=== PATIENT | female | born 1990 | race Caucasian/White ===

== ENCOUNTER 2018-01-07 09:15 | Emergency (ER) | payer MEDICAID ==
--- NOTE | 2018-01-07 09:30 | EDM.PDOC ---
ED HPI GENERAL MEDICAL PROBLEM - General Stated Complaint: EYES SWOLLEN Time Seen by Provider: 01/07/18 09:25 - History of Present Illness INITIAL COMMENTS - FREE TEXT/NARRATIVE: HISTORY AND PHYSICAL: History of present illness: Patient is a 27-year-old white female presents with a concern of bilateral crustiness and injection of her conjunctiva right greater than left with some slight lid edema on the right she also had a sore throat she denies fever chills nausea vomiting or other complaints Review of systems: As per history of present illness and below otherwise all systems reviewed and negative. Past medical history: As per history of present illness and as reviewed below otherwise noncontributory. Surgical history: As per history of present illness and as reviewed below otherwise noncontributory. Social history: No reported history of drug or alcohol abuse. Family history: As per history of present illness and as reviewed below otherwise noncontributory. Physical exam: HEENT: Atraumatic, normocephalic, pupils reactive, patient has bilateral injected conjunctiva there is little bit of discharge in her left eye and she is noted to have a small abrasion to her inferior conjunctiva on the right. Anterior chambers clear there is no foreign body or corneal abrasion noted, mucous membranes moist, throat clear, neck supple, nontender, trachea midline. Lungs: Clear to auscultation, breath sounds equal bilaterally, chest nontender. Heart: S1S2, regular, negative for clicks, rubs, or JVD. Abdomen: Soft, nondistended, nontender. Negative for masses or hepatosplenomegaly. Negative for costovertebral tenderness. Pelvis: Stable nontender. Genitourinary: Deferred. Rectal: Deferred. Extremities: Atraumatic, negative for cords or calf pain. Neurovascular unremarkable. Neuro: Awake, alert, oriented. Cranial nerves II through XII unremarkable. Cerebellum unremarkable. Motor and sensory unremarkable throughout. Exam nonfocal. Diagnostics: Rapid strep Therapeutics: Ocular irrigation erythromycin ophthalmic ointment instilled in both eyes Impression: #1 bilateral conjunctivitis #2 pharyngitis Definitive disposition and diagnosis as appropriate pending reevaluation and review of above. ED ROS GENERAL - Review of Systems Review Of Systems: ROS reveals no pertinent complaints other than HPI. ED EXAM, GENERAL - Physical Exam Exam: See Below (See dictation) Course - Orders/Labs/Meds Orders: Active Orders 24 hr Category Date Time Status STREP SCRN A RAPID W CULT CONF [RM] Stat Lab 01/07/18 09:24 Ordered Departure - Departure Time of Disposition: :29 Disposition: Home, Self-Care 01 Condition: Good Clinical Impression: Conjunctivitis - Discharge Information Referrals: PCP,None [Primary Care Provider] - Additional Instructions: The following information is given to patients seen in the emergency department who are being discharged to home. This information is to outline your options for follow-up care. We provide all patients seen in our emergency department with a follow-up referral. The need for follow-up, as well as the timing and circumstances, are variable depending upon the specifics of your emergency department visit. If you don't have a primary care physician on staff, we will provide you with a referral. We always advise you to contact your personal physician following an emergency department visit to inform them of the circumstance of the visit and for follow-up with them and/or the need for any referrals to a consulting specialist. The emergency department will also refer you to a specialist when appropriate. This referral assures that you have the opportunity for followup care with a specialist. All of these measure are taken in an effort to provide you with optimal care, which includes your followup. Under all circumstances we always encourage you to contact your private physician who remains a resource for coordinating your care. When calling for followup care, please make the office aware that this follow-up is from your recent emergency room visit. If for any reason you are refused follow-up, please contact the [facility] emergency department at and asked to speak to the emergency department charge nurse. Tobramycin as prescribed follow-up primary medical doctor/ophthalmology as needed as discussed return as needed as discussed - My Orders Last 24 Hours: My Active Orders 01/07/18 09:24 STREP SCRN A RAPID W CULT CONF [RM] Stat - Assessment/Plan Last 24 Hours: My Active Orders 01/07/18 09:24 STREP SCRN A RAPID W CULT CONF [RM] Stat
[2018-01-07] MEDS ORDERED: Erythromycin Base 0.5% Ophth Oint 1 GM Tube EYEBOTH ONE (10:04)
== END 2018-01-07 10:38 | disposition home or self-care (01) ==
LOC: MW.ED 09:15
DX: H10.9 Unspecified conjunctivitis (principal); J02.9 Acute pharyngitis, unspecified
CPT/HCPCS: 87081; 87880; 99283; A9270

== ENCOUNTER 2019-09-30 09:45 | Day surgery (SDC) | payer MEDICAID ==
[~2019-09-30 09:45] MED LIST: Lactated Ringers 1,000 ML IV SCH; Sodium Chloride 0.9% 10 ML SDV IV PRN; Sodium Chloride 0.9% 10 ML Syringe FLUSH PRN; Sodium Chloride 0.9% 2.5 ML Syringe FLUSH PRN
[2019-09-30] MEDS ORDERED: Midazolam 1 MG/ML 2 ML SDV ONE ×2 (10:32→13:01)
[2019-09-30] MEDS ORDERED: fentaNYL 100 MCG/2 ML SDV ONE ×2 (10:35→16:57)
[2019-09-30] MEDS ORDERED: Propofol 200 MG/20 ML SDV ONE (10:37)
[2019-09-30] MEDS ORDERED: Rocuronium 100 MG/10 ML Syringe ONE (10:38)
[2019-09-30] MEDS ORDERED: ePHEDrine 50 MG/ML SDV ONE (10:39)
[2019-09-30] MEDS ORDERED: Sodium Chloride 0.9% 40 ML ONE (10:39)
--- NOTE | 2019-09-30 10:43 | PCM.PREANE ---
Preanesthetic Assessment - Anesthesia/Transfusion/Family Hx Anesthesia History: Prior Anesthesia Without Reaction Family History of Anesthesia Reaction: No Transfusion History: No Prior Transfusion(s) Intubation History: Unknown - Review of Systems General: No Symptoms Pulmonary: No Symptoms Cardiovascular: No Symptoms Gastrointestinal: No Symptoms Neurological: No Symptoms Other: Reports: None - Physical Assessment NPO Status Date: 09/30/19 NPO Status Time: 01:30 Vital Signs: Last Vital Signs Temp 35.9 C 09/30/19 09:55 Pulse 69 09/30/19 09:55 Resp 18 09/30/19 09:55 BP 130/83 09/30/19 09:55 Pulse Ox 95 09/30/19 09:55 Height: 5 ft 5 in Weight: 100.698 kg ASA Class: 2 Mental Status: Alert & Oriented x3 Airway Class: Mallampati = 2 Dentition: Reports: Normal Dentition Thyro-Mental Finger Breadths: 3 Mouth Opening Finger Breadths: 2 (jaw "pops out when he try to open wide) ROM/Head Extension: Full Lungs: Clear to Auscultation, Normal Respiratory Effort Cardiovascular: Regular Rate, Regular Rhythm - Lab Values: Laboratory Last Values WBC 9.20 K/uL (4.0-11.0) 09/30/19 10:11 RBC 4.71 M/uL (4.30-5.90) 09/30/19 10:11 Hgb 14.0 g/dL (12.0-16.0) 09/30/19 10:11 Hct 41.7 % (36.0-46.0) 09/30/19 10:11 MCV 88.5 fL (80.0-98.0) 09/30/19 10:11 MCH 29.7 pg (27.0-32.0) 09/30/19 10:11 MCHC 33.6 g/dL (31.0-37.0) 09/30/19 10:11 RDW Std Deviation 44.6 fl (28.0-62.0) 09/30/19 10:11 RDW Coeff of Kelin 14 % (11.0-15.0) 09/30/19 10:11 Plt Count 291 K/uL (150-400) 09/30/19 10:11 MPV 10.90 fL (7.40-12.00) 09/30/19 10:11 Nucleated RBC % 0.0 /100WBC 09/30/19 10:11 Nucleated RBCs # 0 K/uL 09/30/19 10:11 - Allergies Allergies/Adverse Reactions: Allergies Allergy/AdvReac Type Severity Reaction Status Date / Time amoxicillin [From Augmentin] Allergy Hives Verified 09/24/19 13:22 clavulanic acid Allergy Hives Verified 09/24/19 13:22 [From Augmentin] Penicillins Allergy Hives Verified 09/24/19 13:22 - Blood Blood Available: No - Anesthesia Plan Pre-Op Medication Ordered: None - Acknowledgements Anesthesia Type Planned: General Anesthesia Pt an Appropriate Candidate for the Planned Anesthesia: Yes Alternatives and Risks of Anesthesia Discussed w Pt/Guardian: Yes Pt/Guardian Understands and Agrees with Anesthesia Plan: Yes PreAnesthesia Questionnaire HEENT History: Reports: Other (See Below) Other HEENT History: wears glasses/contacts Cardiovascular History: Reports: None Respiratory History: Reports: None Gastrointestinal History: Reports: None Genitourinary History: Reports: None [employer] 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: Reports: Endometriosis, Other OB/BYN History: C section clopoysis Musculoskeletal History: Reports: None Neurological History: Reports: Migraines Psychiatric History: Reports: Anxiety, Depression Endocrine/Metabolic History: Reports: Obesity/BMI 30+ (BMI 36.9) Hematologic History: Reports: None Immunologic History: Reports: None Oncologic (Cancer) History: Reports: None Dermatologic History: Reports: None - Infectious Disease History Infectious Disease History: Reports: None - Past Surgical History Head Surgeries/Procedures: Reports: None HEENT Surgical History: Reports: Oral Surgery Other HEENT Surgeries/Procedures: wisdom teeth removed GI Surgical History: Reports: Appendectomy Other GI Surgeries/Procedures: appy Female Surgical History: Reports: Breast Implant, Section - SUBSTANCE USE Smoking Status *Q: Former Smoker Tobacco Use Within Last Twelve Months: No Recreational Drug Use History: No - HOME MEDS Home Medications: Home Meds ALPRAZolam [Alprazolam] 1 mg PO DAILY PRN 09/24/19 [History] Escitalopram [Lexapro] 20 mg PO DAILY 09/24/19 [History] Multivitamin [Daily Multiple Vitamin] 1 tab PO DAILY 09/24/19 [History] Norgestrel-Ethinyl Estradiol [Cryselle-28 Tablet] 1 tab PO DAILY 09/24/19 [ History] SUMAtriptan [Imitrex] 50 mg PO ASDIRECTED PRN 09/24/19 [History] traMADol [Ultram] 50 mg PO BID PRN 09/24/19 [History] - CURRENT (IN HOUSE) MEDS Current Meds: Current Medications Lactated Ringer's (Ringers, Lactated) 1,000 mls @ 100 mls/hr IV ASDIRECTED BERNARD Last Admin: 09/30/19 10:10 Dose: 100 mls/hr Sodium Chloride (Saline Flush) 10 ml FLUSH ASDIRECTED PRN PRN Reason: Keep Vein Open Sodium Chloride (Saline Flush) 2.5 ml FLUSH ASDIRECTED PRN PRN Reason: Keep Vein Open Sodium Chloride (Normal Saline) 10 ml IV ASDIRECTED PRN PRN Reason: IV Use Discontinued Medications Fentanyl (Sublimaze) Confirm Administered Dose 100 mcg .ROUTE .STK-MED ONE Stop: 09/30/19 10:36 Midazolam HCl (Versed 1 Mg/Ml) Confirm Administered Dose 2 mg .ROUTE .STK-MED ONE Stop: 09/30/19 10:33
[2019-09-30] MEDS ORDERED: Bupivacaine 0.25% 10 ML SDV ONE (12:33)
[2019-09-30] MEDS ORDERED: Methylene Blue 50 MG/10 ML Ampule ONE (12:33)
[2019-09-30] MEDS ORDERED: Midazolam 1 MG/ML 2 ML SDV IVPUSH ONE (13:01)
[2019-09-30] MEDS ORDERED: fentaNYL 100 MCG/2 ML SDV IVPUSH PRN (18:34)
[2019-09-30] MEDS ORDERED: HYDROmorphone 1 MG/ML Syringe IVPUSH ONE (18:35)
--- NOTE | 2019-09-30 18:37 | PCM.OPNOTE ---
- General Post-Op/Procedure Note Date of Surgery/Procedure: 09/30/19 Operative Procedure(s): Diagnostic laparoscopy with right ovarian biopsy Findings: Normal appearing pelvis Pre Op Diagnosis: Pelvic pain Post-Op Diagnosis: Same Anesthesia Technique: General ET Tube Primary Surgeon: Kay Kimble Fluid Replacement, Intraop: 700 EBL in mLs: 5 Complications: none known Condition: Good Free Text/Narrative:: Dictation [id number]
[2019-09-30] MEDS ORDERED: HYDROmorphone 2 MG/ML Syringe ONE (18:55)
--- NOTE | 2019-09-30 19:18 | PCM.POSTAN ---
POST ANESTHESIA ASSESSMENT - MENTAL STATUS Mental Status: Alert, Oriented - VITAL SIGNS Vital Signs: Last Vital Signs Temp 36.8 C 09/30/19 18:30 Pulse 77 09/30/19 19:11 Resp 15 09/30/19 19:11 BP 130/70 09/30/19 19:11 Pulse Ox 95 09/30/19 19:11 - RESPIRATORY Respiratory Status: Respiratory Rate WNL, Airway Patent, O2 Saturation Stable - CARDIOVASCULAR CV Status: Pulse Rate WNL, Blood Pressure Stable - GASTROINTESTINAL GI Status: No Symptoms - PAIN Pain Score: 3 - POST OP HYDRATION Hydration Status: Adequate & Stable - OBSERVATIONS Free Text/Narrative:: No anesthesia problems
--- NOTE | 2019-10-01 06:46 | PCM48HPAN ---
Post Anesthesia Note - EVALUATION WITHIN 48HRS OF ANESTHETIC Vital Signs in Normal Range: Yes Patient Participated in Evaluation: Yes Respiratory Function Stable: Yes Airway Patent: Yes Cardiovascular Function Stable: Yes Hydration Status Stable: Yes Pain Control Satisfactory: Yes Nausea and Vomiting Control Satisfactory: Yes Mental Status Recovered: Yes Vital Signs: Last Vital Signs Temp 36.4 C 09/30/19 19:25 Pulse 83 09/30/19 20:40 Resp 18 09/30/19 20:40 BP 142/75 H 09/30/19 20:40 Pulse Ox 96 09/30/19 20:40 - COMMENTS/OBSERVATIONS Free Text/Narrative:: no anesthesia problems
--- NOTE | 2019-10-01 08:24 | OR ---
SURGEON: Kay Kimble M.D. DATE OF PROCEDURE: 09/30/2019 PREOPERATIVE DIAGNOSIS: Pelvic pain. POSTOPERATIVE DIAGNOSIS: Pelvic pain. PROCEDURE PERFORMED: Diagnostic laparoscopy with left ovarian biopsy. PRIMARY SURGEON: Kay Kimble MD. ANESTHESIA: General endotracheal anesthesia. FLUIDS: 700 mL of crystalloid. ESTIMATED BLOOD LOSS: 5 mL. COMPLICATION: None. FINDINGS: Normal-appearing pelvis. DISPOSITION: Patient to PACU stable. INDICATION: Lyn is a 29-year-old, G1, P1, who has ongoing difficulties with pelvic pain and dyspareunia since delivery of her son. She has tried various hormone therapy such as OCP and Depo-Provera without relief of her symptomatology. Imaging studies have been reassuring. At this time, we discussed proceeding with further evaluation of pelvis via laparoscopy, and she would like to proceed with surgical intervention. Risks of procedure have been discussed with her. Proper consent was obtained. DESCRIPTION OF PROCEDURE: The patient was taken to the operating room where she underwent general endotracheal anesthesia and was placed in modified dorsolithotomy position. She was prepped and draped in usual sterile fashion. SCDs to lower extremities. Bladder was drained. Time-out was performed. Speculum was introduced in the vagina. Anterior cervix grasped with an Allis clamp and HUMI uterine manipulator was gently introduced, insufflated to 3 mL. The balloon was now insufflated. All instruments other than the uterine manipulator were now removed from the vagina. Attention turned abdominally. Infraumbilically, 0.25% Marcaine was introduced. A 5 mm skin incision was created. Anterior abdominal wall tented upward. A Veress needle was gently introduced. Saline hanging drop test was performed. Pneumoperitoneum was achieved. The laparoscope was now introduced. Peritoneal contents were identified. Uterus is mobile. Anterior cul-de-sac appears smooth. A left lower quadrant trocar was introduced after prepping the region with 0.25% Marcaine and creating 5-mm skin incision. The posterior cul-de-sac closely inspected. No lesions or adhesions were noted. Ovaries and tubes appeared normal. Photographs were taken of the peritoneal surfaces in the pelvis. The right upper quadrant, left upper quadrant of the abdomen was also inspected and found to be normal in appearance. Given most of her pain is left-sided, I did perform a left ovarian biopsy. This will be sent to pathology for further analysis. The pelvis was now copiously irrigated and suctioned dried. Hemostasis appeared evident. The patient tolerated procedure well overall. Pneumoperitoneum was released. The left lower quadrant trocar was removed under direct visualization. The laparoscope and infraumbilical trocar were now also removed. Pneumoperitoneum had been released. The skin edges were reapproximated using 4-0 Monocryl in subcuticular fashion. The vaginal HUMI manipulator were now removed. Sponge, instrument, and needle count was correct x2. The patient tolerated the procedure well overall. She will go to PACU in stable condition. Specimen to pathology. SALLY / TRAVON /[id number]
== END 2019-09-30 20:55 | disposition home or self-care (01) ==
LOC: MW.MS 09:45 → MW.SDS 09:45
PROVIDERS: ATTEND Obstetrics & Gynecology
DX: R10.2 Pelvic and perineal pain (principal); N94.12 Deep dyspareunia; F41.9 Anxiety disorder, unspecified; G43.909 Migraine, unspecified, not intractable, without status migrainosus; E66.9 Obesity, unspecified; Z88.0 Allergy status to penicillin; Z68.37 Body mass index [BMI] 37.0-37.9, adult; Z79.899 Other long term (current) drug therapy
CPT/HCPCS: 36415; 49321; 84703; 85027; 88305; J0330; J1170; J2250; J2704; J3010; J3490; J7120; 00840

== ENCOUNTER 2019-12-05 06:42 | Day surgery (SDC) | payer MEDICAID ==
[~2019-12-05 06:42] MED LIST changes: +Clindamycin Phosphate in D5W 50 ML ONE; +Clindamycin Phosphate in D5W 600 MG in Premix Bag 1 BAG IV ONE
--- NOTE | 2019-12-05 07:16 | PCM.PREANE ---
Preanesthetic Assessment - Anesthesia/Transfusion/Family Hx Anesthesia History: Prior Anesthesia Without Reaction Family History of Anesthesia Reaction: Other (see below) (Severe PONV, mother and gradnmother, but patient denies) Transfusion History: No Prior Transfusion(s) Intubation History: Unknown - Review of Systems General: No Symptoms Pulmonary: No Symptoms Cardiovascular: No Symptoms Gastrointestinal: No Symptoms Neurological: Other (Anxiety this AM) Other: Reports: None - Physical Assessment NPO Status Date: 12/04/19 NPO Status Time: 22:00 Vital Signs: Last Vital Signs Temp 97.2 F 12/05/19 06:57 Pulse 77 12/05/19 06:57 Resp 16 12/05/19 06:57 BP 127/70 12/05/19 06:57 Pulse Ox 96 12/05/19 06:57 Height: 5 ft 5 in Weight: 99.79 kg ASA Class: 2 Mental Status: Alert & Oriented x3 Airway Class: Mallampati = 2 Dentition: Reports: Normal Dentition Thyro-Mental Finger Breadths: 3 Mouth Opening Finger Breadths: 3 ROM/Head Extension: Full Lungs: Clear to Auscultation, Normal Respiratory Effort Cardiovascular: Regular Rate, Regular Rhythm - Allergies Allergies/Adverse Reactions: Allergies Allergy/AdvReac Type Severity Reaction Status Date / Time amoxicillin [From Augmentin] Allergy Hives Verified 12/02/19 07:50 clavulanic acid Allergy Hives Verified 12/02/19 07:50 [From Augmentin] Penicillins Allergy Hives Verified 12/02/19 07:50 - Acknowledgements Anesthesia Type Planned: General Anesthesia Pt an Appropriate Candidate for the Planned Anesthesia: Yes Alternatives and Risks of Anesthesia Discussed w Pt/Guardian: Yes Pt/Guardian Understands and Agrees with Anesthesia Plan: Yes PreAnesthesia Questionnaire HEENT History: Reports: Other (See Below) Other HEENT History: wears glasses/contacts Cardiovascular History: Reports: None Respiratory History: Reports: None Gastrointestinal History: Reports: Cholelithiasis Genitourinary History: Reports: None 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, Musculoskeletal History: Reports: None Neurological History: Reports: Migraines Psychiatric History: Reports: Anxiety, Depression Endocrine/Metabolic History: Reports: Obesity/BMI 30+ Hematologic History: Reports: None Immunologic History: Reports: None Oncologic (Cancer) History: Reports: None Dermatologic History: Reports: None - Infectious Disease History Infectious Disease History: Reports: None - Past Surgical History Head Surgeries/Procedures: Reports: None HEENT Surgical History: Reports: Oral Surgery Other HEENT Surgeries/Procedures: wisdom teeth removed Cardiovascular Surgical History: Reports: None Respiratory Surgical History: Reports: None GI Surgical History: Reports: Appendectomy Female Surgical History: Reports: Breast Implant, Section, Other ( See Below) Other Female Surgeries/Procedures: exploratory laparoscopy Endocrine Surgical History: Reports: None Neurological Surgical History: Reports: None Musculoskeletal Surgical History: Reports: None Oncologic Surgical History: Reports: None Dermatological Surgical History: Reports: None - SUBSTANCE USE Smoking Status *Q: Former Smoker Tobacco Use Within Last Twelve Months: No - HOME MEDS Home Medications: Home Meds ALPRAZolam [Alprazolam] 1 mg PO BID PRN 09/24/19 [History] Escitalopram [Lexapro] 20 mg PO DAILY 09/24/19 [History] Multivitamin [Daily Multiple Vitamin] 1 tab PO DAILY 09/24/19 [History] Norgestrel-Ethinyl Estradiol [Cryselle-28 Tablet] 1 tab PO DAILY 09/24/19 [ History] SUMAtriptan [Imitrex] 50 mg PO ASDIRECTED PRN 09/24/19 [History] traMADol [Ultram] 50 mg PO BID PRN 09/24/19 [History] Butalbital/Aspirin/Caffeine [Fiorinal 50-325-40 MG] 1 tab PO Q8H PRN 12/02/19 [ History] Ibuprofen [Advil] 2 - 3 tab PO BID PRN 12/02/19 [History] Promethazine HCl 25 mg PO Q4H PRN 12/02/19 [History] - CURRENT (IN HOUSE) MEDS Current Meds: Current Medications Lactated Ringer's (Ringers, Lactated) 1,000 mls @ 125 mls/hr IV ASDIRECTED BERNARD Last Admin: 12/05/19 07:01 Dose: 125 mls/hr Sodium Chloride (Saline Flush) 10 ml FLUSH ASDIRECTED PRN PRN Reason: Keep Vein Open Sodium Chloride (Saline Flush) 2.5 ml FLUSH ASDIRECTED PRN PRN Reason: Keep Vein Open Sodium Chloride (Normal Saline) 10 ml IV ASDIRECTED PRN PRN Reason: IV Use Discontinued Medications Clindamycin Phosphate 600 mg/ (Premix) 50 mls @ 100 mls/hr IV ONETIME ONE Stop: 12/02/19 09:50 Clindamycin Phosphate (Cleocin In D5w) Confirm Administered Dose 50 mls @ as directed .ROUTE .STK-MED ONE Stop: 12/05/19 06:39
[2019-12-05] MEDS ORDERED: Propofol 200 MG/20 ML SDV ONE (07:18)
[2019-12-05] MEDS ORDERED: Ondansetron 4 MG/2 ML SDV ONE (07:18)
[2019-12-05] MEDS ORDERED: Rocuronium 100 MG/10 ML Syringe ONE (07:18)
[2019-12-05] MEDS ORDERED: Lidocaine 2% 5 ML SDV ONE (07:18)
[2019-12-05] MEDS ORDERED: Midazolam 1 MG/ML 2 ML SDV ONE (07:18)
[2019-12-05] MEDS ORDERED: Ketamine 500 mg/10 ML MDV ONE (07:18)
[2019-12-05] MEDS ORDERED: Scopolamine 1.5 MG Transdermal Patch TRDERM PRN (07:18)
[2019-12-05] MEDS ORDERED: fentaNYL 250 MCG/5 ML SDV ONE (07:19)
[2019-12-05] MEDS ORDERED: Bupivacaine 0.5% 30 ML SDV ONE (07:33)
[2019-12-05] MEDS ORDERED: diphenhydrAMINE 50 MG/ML SDV ONE (08:21)
[2019-12-05] MEDS ORDERED: Dexamethasone 4 MG/ML 5 ML MDV ONE (08:21)
[2019-12-05] MEDS ORDERED: fentaNYL 100 MCG/2 ML SDV IVPUSH PRN (08:37)
[2019-12-05] MEDS ORDERED: Albuterol 0.083% 2.5 MG/3 ML Neb Soln NEB PRN (08:37)
[2019-12-05] MEDS ORDERED: Naloxone 0.4 MG/ML Syringe IVPUSH PRN (08:37)
[2019-12-05] MEDS ORDERED: 50% Dextrose in Water 50 ML Syringe IVPUSH PRN (08:37)
[2019-12-05] MEDS ORDERED: EPINEPHrine 1:10,000 1 MG/10 ML Syringe IVPUSH PRN (08:37)
[2019-12-05] MEDS ORDERED: Atropine 0.1 MG/ML 10 ML Syringe IVPUSH PRN ×2 (08:37)
--- NOTE | 2019-12-05 09:37 | PCM.OPNOTE ---
- General Post-Op/Procedure Note Date of Surgery/Procedure: 12/05/19 Operative Procedure(s): Laparoscopic cholecystectomy Findings: Mild to moderate chronic inflammation of the gallbladder Pre Op Diagnosis: Symptomatic cholelithiasis Post-Op Diagnosis: same Anesthesia Technique: General ET Tube Primary Surgeon: Vicky Omer Fluid Replacement, Intraop: 1,800 Output, Urine Amount: 20 EBL in mLs: 20 Condition: Good
[2019-12-05] MEDS ORDERED: Acetaminophen 1,000 MG in Premix Bag 1 BAG IV PRN (09:43)
[2019-12-05] MEDS: HYDROmorphone 2 MG/ML Syringe IVPUSH PRN ×2 (09:48→09:58)
--- NOTE | 2019-12-05 10:14 | PCM.POSTAN ---
POST ANESTHESIA ASSESSMENT - MENTAL STATUS Mental Status: Alert, Oriented - VITAL SIGNS Vital Signs: Last Vital Signs Temp 38.3 C H 12/05/19 09:38 Pulse 87 12/05/19 10:08 Resp 11 L 12/05/19 10:08 BP 134/74 12/05/19 10:08 Pulse Ox 94 L 12/05/19 10:08 - RESPIRATORY Respiratory Status: Respiratory Rate WNL, Airway Patent, O2 Saturation Stable - CARDIOVASCULAR CV Status: Pulse Rate WNL, Blood Pressure Stable - GASTROINTESTINAL GI Status: No Symptoms - PAIN Pain Score: 5 - POST OP HYDRATION Hydration Status: Adequate & Stable - OBSERVATIONS Free Text/Narrative:: No anesthesia problems.
[2019-12-05] MEDS ORDERED: Acetaminophen/oxyCODONE 325-5 MG Tab PO PRN (10:28)
[2019-12-05] MEDS ORDERED: Acetaminophen/oxyCODONE 325-5 MG Tab ONE (10:38)
[2019-12-05] MEDS ORDERED: Neostigmine Methylsulfate 1 MG/ML 5 ML Syringe ONE (10:58)
[2019-12-05] MEDS ORDERED: Glycopyrrolate 0.2 MG/ML SDV ONE (10:58)
--- NOTE | 2019-12-05 12:04 | PCM48HPAN ---
Post Anesthesia Note - EVALUATION WITHIN 48HRS OF ANESTHETIC Vital Signs in Normal Range: Yes Patient Participated in Evaluation: Yes Respiratory Function Stable: Yes Airway Patent: Yes Cardiovascular Function Stable: Yes Hydration Status Stable: Yes Pain Control Satisfactory: Yes Nausea and Vomiting Control Satisfactory: Yes Mental Status Recovered: Yes Vital Signs: Last Vital Signs Temp 36.2 C 12/05/19 10:15 Pulse 86 12/05/19 11:45 Resp 14 12/05/19 11:45 BP 133/63 12/05/19 11:45 Pulse Ox 96 12/05/19 11:45 - COMMENTS/OBSERVATIONS Free Text/Narrative:: No anesthesia problems.
--- NOTE | 2019-12-05 13:39 | OR ---
SURGEON: VICKY OMER MD DATE OF PROCEDURE: 12/05/2019 PREOPERATIVE DIAGNOSIS: Symptomatic cholelithiasis. POSTOPERATIVE DIAGNOSIS: Symptomatic cholelithiasis. PROCEDURE PERFORMED: Laparoscopic cholecystectomy. PRIMARY SURGEON: Vicky Omer MD. ANESTHESIA: General endotracheal anesthesia. FLUIDS: 1800 mL of crystalloid. ESTIMATED BLOOD LOSS: 20 mL. URINE OUTPUT: 20 mL. FINDINGS: Gallbladder with mild to moderate chronic inflammation secondary to cholelithiasis and chronic cholecystitis. A small dark piece of tissue on the body of the gallbladder wall, felt to be an endometrial implant. COMPLICATIONS: None. INDICATIONS: The patient is a 29-year-old female who presents with chronic right upper quadrant pain. A recent workup revealed multiple gallstones within her gallbladder. Due to her diagnosis of symptomatic cholelithiasis, we discussed the need for cholecystectomy. I explained the laparoscopic approach. Should I be unable to perform it safely, I will convert to open. We discussed the risks including bleeding, infection, or damage to surrounding structures. I explained the expected perioperative course. She verbalized understanding and wishes to proceed. PROCEDURE IN DETAIL: The patient was brought into the OR and placed on the OR table in supine position. A time-out was completed verifying the patient's name, age, date of , allergies, and procedure to be performed. General endotracheal anesthesia was induced. The left arm was tucked the patient's side and Chung catheter placed. The abdomen was prepped and draped in usual standard fashion. I anesthetized the infraumbilical fold with 0.5% Marcaine plain. An 11 blade was used to make an incision along the infraumbilical fold. Cautery was used to dissect down to the level of subcutaneous fat. I bluntly dissected down to the level of the fascia. The fascia was elevated with Radha's and incised sharply with the scissors. The peritoneum was identified. This was entered bluntly using a hemostat. Entry into the abdomen was palpated digitally. A 12 mm Tan trocar was placed through the incision and the abdomen was insufflated. A 5 mm 30-degree scope was inserted. I inspected the area underneath my initial trocar placement and no damage to surrounding structures was noted. The patient was placed into reverse Trendelenburg position and airplaned slightly to the left. Trocars were placed in the following locations under direct visualization; one in the epigastric area, one in the right flank, and one 2 fingerbreadths below the right subcostal margin in the midclavicular line. The dome of the gallbladder was grasped and elevated cranially. When I did that, a small capsular tear was made along the ligamentum on the right lobe of the liver. Bleeding was controlled with a small amount electrocautery. Care was taken after this to minimize any tension along the midline of the liver. The patient had a couple of small adhesions of the gallbladder wall to the omentum. These were taken down using hook cautery and blunt dissection. The infundibulum was identified. It was covered in inflammatory tissue. This was taken down using gentle blunt dissection as well as hook cautery. I then dissected out my cystic duct and artery. I identified the node of Calot. I dissected out the cystic plate. Once my critical view was achieved, I doubly clipped and ligated my cystic duct and artery. The gallbladder was removed from the gallbladder fossa using electrocautery. The gallbladder was then placed in an Endo Catch bag and removed through the infraumbilical port site. The trocar was placed back in the abdomen, and I inspected my operative field. I suctioned out any free blood that was in the right and left pericolic gutter as well as underneath my liver edge. Surgicel was placed in the gallbladder fossa as well as along my small capsular tear. Once hemostasis was achieved, I removed my trocars under direct visualization and allowed the abdomen to desufflate. The fascia at the infraumbilical port site was closed with interrupted 0 Vicryl sutures. The subcutaneous fat layer was closed with an interrupted 3-0 Vicryl suture. The skin was closed with running 4-0 Monocryl stitch. The 5 mm trocar sites were closed with interrupted 4-0 Monocryl sutures. Steri-Strips and sterile dressings were applied. The patient tolerated the procedure well and was transferred to the PACU in stable condition. All counts were complete and correct at the end of the case. JOEL / TRAVON /[id number]
== END 2019-12-05 12:06 | disposition home or self-care (01) ==
LOC: MW.SDS 06:42
PROVIDERS: ATTEND Surgery
DX: K80.10 Calculus of gallbladder with chronic cholecystitis without obstruction (principal); F41.9 Anxiety disorder, unspecified; F32.9 Major depressive disorder, single episode, unspecified; G43.909 Migraine, unspecified, not intractable, without status migrainosus; E66.9 Obesity, unspecified; Z68.38 Body mass index [BMI] 38.0-38.9, adult; Z87.891 Personal history of nicotine dependence; Z88.1 Allergy status to other antibiotic agents; Z88.0 Allergy status to penicillin; Z79.899 Other long term (current) drug therapy
CPT/HCPCS: 47562; 81025; A9270; J0131; J1100; J1170; J1200; J2001; J2250; J2405; J2704; J3010; J3490; J7120; S0077; 00790; 88304

== ENCOUNTER 2020-05-26 12:29 | Emergency (ER) | payer MEDICAID ==
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
[2020-05-26] MEDS ORDERED: Ketorolac 60 MG/2 ML SDV IM ONE (13:21)
--- NOTE | 2020-05-26 14:35 | CR ---
Left shoulder: 3 views left shoulder were obtained. Comparison: No previous shoulder study. Glenohumeral joint and acromioclavicular joint appears normal. No acute fracture, dislocation or other bony abnormality is appreciated. Impression: 1. No abnormality is appreciated on 3 view left shoulder study. Diagnostic code #1 Study was dictated in MDT
--- NOTE | 2020-05-26 14:35 | CR ---
Chest with left ribs: Frontal view of the chest is obtained as well as 2 views showing left lower ribs. Small left-sided pleural effusion is seen. Heart size and mediastinum are within normal limits for AP technique. Mild atelectasis within left lung base is seen. Lungs otherwise are clear. Mildly displaced fracture is noted within the left sixth rib. Possible fracture within the fifth rib is also noted. Impression: 1. Small left-sided pleural effusion. 2. One or 2 left-sided rib fractures as noted above. Diagnostic code #3 Study was dictated in MDT
--- NOTE | 2020-05-26 14:50 | CR ---
Right ankle: 3 views of the right ankle were obtained. Comparison: No prior ankle exam is available. Ankle mortise is symmetric. No acute fracture, dislocation or other bony abnormality is appreciated. Impression: 1. No abnormality is appreciated on 3 view right ankle exam. Diagnostic code #1 Study was dictated in MDT
--- NOTE | 2020-05-26 14:56 | CT ---
CT cervical spine Technique: Multiple axial sections were obtained from above C1 inferiorly to the top of T4. Reconstructed coronal and sagittal images were obtained. Comparison: No prior cervical spine imaging. Findings: Vertebral body heights and disc spaces are maintained. Vertebral bodies and posterior arches are intact. No fracture is seen. No abnormal subluxation is seen. Soft tissue air is noted within the left side of the neck and within the posterior left upper back. Please correlate if there has been penetrating soft tissue injury. No central canal stenosis or neural foraminal stenosis is seen. Small left-sided pleural effusion is seen. Impression: 1. Soft tissue air within the left side of the neck and posterior upper left back, please correlate if patient has had penetrating soft tissue injury. 2. No acute bony abnormality is appreciated on CT study of the cervical spine. 3. Small left-sided pleural effusion. Diagnostic code #3 Study was dictated in MDT
[2020-05-26] MEDS ORDERED: fentaNYL 100 MCG/2 ML SDV IVPUSH ONE (15:17)
[2020-05-26] MEDS ORDERED: fentaNYL 50 MCG/ML SDV IVPUSH ONE (15:31)
[2020-05-26] MEDS ORDERED: Ondansetron 4 MG/2 ML SDV IVPUSH ONE (15:34)
[2020-05-26] MEDS ORDERED: Iopamidol 755 Mg/ML 100 ML Bottle IVPUSH STA (16:13)
--- NOTE | 2020-05-26 16:52 | CT ---
CT abdomen and pelvis Technique: Multiple axial sections were obtained from above the dome of the diaphragm inferiorly through the pubic symphysis. Intravenous contrast was utilized. No oral contrast has been given. Comparison: No prior CT abdomen or pelvis study is available. Findings: Small left-sided pleural effusion is noted. Focal consolidation is noted adjacent to the pleural effusion. Findings raise the possibility of left lower lung pneumonia with small parapneumonic pleural effusion. Liver contains no focal parenchymal abnormality. Spleen appears within normal limits. Bilateral breast prosthesis are noted. Adrenal glands show no nodule. Kidneys show symmetric contrast enhancement without hydronephrosis or mass. Pancreas appears within normal limits. Surgical clips are seen from prior cholecystectomy. Aorta shows no aneurysm. No retroperitoneal adenopathy or mesenteric abnormalities are seen. No pelvic mass or adenopathy is noted. No free fluid or inflammatory change is appreciated. Appendix not visualized with certainty. Bone window settings were reviewed which shows no acute osseous finding. Impression: 1. Small pleural effusion with adjacent mild area of lung consolidation adjacent to the pleural effusion. This is noted within the posterior right lung base. This finding raises the possibility of pneumonia and parapneumonic effusion. Please correlate if this matches patient's clinical symptoms and laboratory findings. 2. No additional abnormality is appreciated on CT study of the abdomen and pelvis. Diagnostic code #3 This report was dictated in MDT
--- NOTE | 2020-05-26 17:25 | CT ---
CT chest Technique: Multiple axial sections were obtained from above the lung apices inferiorly through the lung bases. Intravenous contrast was utilized. Comparison: Previous CT abdomen and pelvis study performed earlier on same day (4:14 PM). Prior chest x-ray performed earlier on the same date is also available. Findings: Small left-sided pleural effusion is seen. Consolidation is noted within the left lung base. There is a small amount of air within the left chest wall adjacent to the ribs. Slightly comminuted and mildly displaced fracture is noted within the lateral fifth. No right-sided rib fracture is appreciated. Minimal endplate concavity is seen within T6. This appears to be acute. Several fracture lines are seen within the anterior vertebral body within the superior endplate. No other compression deformities are seen. Mediastinum and hilar regions appear unremarkable. Bilateral breast prosthesis are noted. No pleural effusions are seen. No axillary adenopathy is noted. Soft tissue density within the superior mediastinum is seen which is felt compatible with residual thymic tissue. Minimal left-sided pneumothorax is noted. Slight atelectasis within the right lung base likely on a dependent basis is seen. Impression: 1. 2 left-sided rib fractures. Minimal left-sided pneumothorax. 2. Pleural effusion is seen likely from the rib fractures. Area of consolidation adjacent to the pleural effusion most likely due to atelectasis and possible pulmonary contusion given the rib fractures. 3. Mild acute compression deformity within the superior endplate of T6. 4. Minimal air within the chest wall adjacent to the rib fractures. Diagnostic code #3 This report was dictated in MDT
== END 2020-05-26 18:22 | disposition home or self-care (01) ==
LOC: MW.ED 12:29
DX: S80.811A Abrasion, right lower leg, initial encounter (principal); S80.211A Abrasion, right knee, initial encounter; S90.512A Abrasion, left ankle, initial encounter; S70.312A Abrasion, left thigh, initial encounter; S40.212A Abrasion of left shoulder, initial encounter; F41.9 Anxiety disorder, unspecified; F32.9 Major depressive disorder, single episode, unspecified; E66.9 Obesity, unspecified; Z68.36 Body mass index [BMI] 36.0-36.9, adult; Z88.1 Allergy status to other antibiotic agents; Z88.0 Allergy status to penicillin; Z79.899 Other long term (current) drug therapy; V86.99XA Unspecified occupant of other special all-terrain or other off-road motor vehicle injured in nontraffic accident, initial encounter; V86.59XA Driver of other special all-terrain or other off-road motor vehicle injured in nontraffic accident, initial encounter
CPT/HCPCS: 36415; 71101; 71260; 72125; 73030; 73610; 74177; 85025; 96372; 96374; 96375; 99284; J1885; J2405; J3010; Q9967

== ENCOUNTER 2023-05-23 05:23 | Inpatient (IN) | payer BC ==
[2023-05-23] MEDS: Lactated Ringers 1,000 ML IV SCH ×2 (06:15→06:59)
[2023-05-23] MEDS ORDERED: Sodium Chloride 0.9% 20 ML SDV IV PRN (06:30)
[2023-05-23] MEDS ORDERED: Oxytocin/0.9 % Sodium Chloride 30 UNIT/500 ML BAG IV SCH (06:30)
[2023-05-23] MEDS ORDERED: Citric Acid/Sodium Citrate Solution 30 ML Cup PO ONE (06:30)
[2023-05-23] MEDS ORDERED: ceFAZolin 2 GM in Sodium Chloride 0.9% 50 ML IV ONE (06:30)
[2023-05-23] MEDS ORDERED: Sodium Chloride 0.9% 10 ML Syringe FLUSH PRN (06:30)
[2023-05-23] MEDS ORDERED: Sodium Chloride 0.9% 2.5 ML Syringe FLUSH PRN (06:30)
[2023-05-23 06:46] LABS: HEMATOCRIT 36.4 % (36.0-46.0); HEMOGLOBIN 12.2 g/dL (12.0-16.0); MEAN CORPUSCULAR HEMOGLOBIN 28.9 pg (27.0-32.0); MEAN CORPUSCULAR HGB CONC 33.5 g/dL (31.0-37.0); MEAN CORPUSCULAR VOLUME 86.3 fL (80.0-98.0); MEAN PLATELET VOLUME 11.2 fL (7.40-12.00); RED BLOOD CELL COUNT 4.22 M/uL (4.30-5.90); WHITE BLOOD CELL COUNT,WBC 13.37 K/uL (4.0-11.0)
[2023-05-23] MEDS ORDERED: Morphine PF 10 MG/10 ML SDV ONE (07:21)
[2023-05-23] MEDS ORDERED: Ondansetron 4 MG/2 ML SDV ONE (07:26)
[2023-05-23] MEDS ORDERED: Oxytocin 10 Units/1 ML SDV ONE (07:26)
[2023-05-23] MEDS ORDERED: Water For Injection, Sterile 20 ML ONE ×2 (07:27→08:06)
[2023-05-23] MEDS ORDERED: ceFAZolin 2 GM Vial ONE (07:27)
[2023-05-23 08:07] LABS: AMPHETAMINES SCREEN, URINE NEGATIVE (CUTOFF=500); BARBITURATE SCREEN,URINE NEGATIVE (CUTOFF=200); BENZODIAZEPINES SCREEN,URINE NEGATIVE (CUTOFF=150); BUPRENORPHINE SCREEN,URINE NEGATIVE (CUTOFF=10); METHADONE SCREEN, URINE NEGATIVE (CUTOFF=200); METHAMPHETAMINES SCREEN, URINE NEGATIVE (CUTOFF=500); OXYCODONE SCREEN,URINE NEGATIVE (CUT0FF=100); PCP SCREEN,URINE NEGATIVE (CUTOFF=25); PROPOXYPHENE SCREEN,URINE NEGATIVE (CUTOFF=300); THC SCREEN,URINE 20 NG/ML PRESUMPTIVE POSITIVE (CUTOFF=50)
[2023-05-23] MEDS ORDERED: Phenylephrine HCl 0.5 MG/5 ML AMP ONE (08:07)
[2023-05-23] MEDS ORDERED: Phenylephrine 1% 10 MG/ML SDV ONE (08:09)
[2023-05-23] MEDS ORDERED: ePHEDrine 50 MG/ML SDV ONE (08:10)
[2023-05-23] MEDS ORDERED: Ropivacaine 0.5% 5 MG/ML 30 ML SDV ONE (08:20)
[2023-05-23] MEDS ORDERED: Ketorolac 30 MG/ML SDV ONE (09:07)
[2023-05-23] MEDS ORDERED: Methylergonovine 0.2 MG/1 ML Amp IM PRN (09:09)
[2023-05-23] MEDS ORDERED: Lanolin 100% Cream 7 GM Tube TOP PRN (09:09)
[2023-05-23] MEDS ORDERED: Oxytocin 10 Units/1 ML SDV IM PRN (09:09)
[2023-05-23] MEDS ORDERED: diphenhydrAMINE 50 MG/ML SDV IVPUSH PRN ×2 (09:09→09:41)
[2023-05-23] MEDS ORDERED: Ondansetron 4 MG/2 ML SDV IVPUSH PRN ×2 (09:09→09:41)
[2023-05-23] MEDS ORDERED: Bisacodyl 10 MG Supp RECTAL PRN (09:09)
[2023-05-23] MEDS ORDERED: Tranexamic Acid 1,000 MG in Sodium Chloride 0.9% 100 ML IV PRN (09:09)
[2023-05-23] MEDS ORDERED: Misoprostol 200 MCG Tab RECTAL PRN (09:09)
[2023-05-23] MEDS ORDERED: Acetaminophen/oxyCODONE 325-5 MG Tab PO PRN (09:09)
[2023-05-23] MEDS ORDERED: Lactated Ringers 1,000 ML IV SCH (09:15)
[2023-05-23] MEDS ORDERED: ePHEDrine 50 MG/ML SDV IVPUSH PRN (09:41)
[2023-05-23] MEDS: Ketorolac 30 MG/ML SDV IVPUSH SCH ×2 (15:43→21:23)
[2023-05-23] MEDS: Acetaminophen 500 MG Tab PO PRN (16:48)
[2023-05-23] MEDS: Docusate Sodium 100 MG Cap PO SCH (20:36)
[2023-05-24] MEDS: Simethicone 80 MG Tab.Chew PO SCH ×5 (00:03→23:46)
[2023-05-24] MEDS: Ketorolac 30 MG/ML SDV IVPUSH SCH ×3 (03:28→09:28)
[2023-05-24 07:00] LABS: HEMATOCRIT 31.6 % (36.0-46.0); HEMOGLOBIN 10.5 g/dL (12.0-16.0)
[2023-05-24] MEDS: Docusate Sodium 100 MG Cap PO SCH ×2 (09:25→21:24)
[2023-05-24] MEDS: Acetaminophen/oxyCODONE 325-5 MG Tab PO PRN ×2 (12:08→21:22)
[2023-05-24] MEDS: Ibuprofen 800 MG Tab PO PRN ×2 (16:11→23:45)
[2023-05-24] MEDS: Acetaminophen 500 MG Tab PO PRN (18:10)
[2023-05-25] MEDS: Simethicone 80 MG Tab.Chew PO SCH ×3 (01:22→12:21)
[2023-05-25] MEDS: Acetaminophen 500 MG Tab PO PRN (07:39)
[2023-05-25] MEDS: Docusate Sodium 100 MG Cap PO SCH (09:02)
[2023-05-25] MEDS: Acetaminophen/oxyCODONE 325-5 MG Tab PO PRN (11:55)
[2023-05-25] MEDS: Ibuprofen 800 MG Tab PO PRN (12:56)
== END 2023-05-25 14:22 | disposition home or self-care (01) | DRG 540 ==
LOC: MW.OB 05:23
PROVIDERS: ADMIT Obstetrics & Gynecology; ATTEND Obstetrics & Gynecology
PROC: 10D00Z1 Extraction of Products of Conception, Low, Open Approach (ICD-10-PCS; principal; 2023-05-23)
DX: O34.211 Maternal care for low transverse scar from previous cesarean delivery (principal); O99.324 Drug use complicating childbirth; F12.90 Cannabis use, unspecified, uncomplicated; O77.0 Labor and delivery complicated by meconium in amniotic fluid; Z37.0 Single live birth; Z3A.39 39 weeks gestation of pregnancy
CPT/HCPCS: 01961; 36415; 59025; 64488; 80305-QW; 85014; 85018; 85027; 86850; 86900; 86901; A9270-GY; J0131; J0690; J1200; J1885; J2274; J2370; J2405; J2590; J2795; J3490; J7120